=== PATIENT | female | born 1970 | race Caucasian/White ===

== ENCOUNTER 2016-10-05 00:52 | Emergency (ER) | payer OTHER ==
--- NOTE | 2016-10-05 01:46 | ED NURSING NOTES ---
Clinical Report - Nurses [facility] [address] [place] [address] 10/05/2016 0:56 Patient: JOSE VEGA TRIAGE Triage time 01:Oct 05 2016. Acuity: LEVEL 4. Chief Complaint: REDNESS TO LEFT EYE. --01: Salbador Gonzales R.N. 01:04 10/05/16. BP: 144/90. HR: 83. RR: 16. O2 saturation: 100%. Temp: 97.9 F. Pain level now 10. --01: Salbador Gonzales R.N. Weight: 90.7 kg estimated. Height/Length: 68 inches. BMI: 30.4. --01: Salbador Gonzales R.N. Medications [place] Carbonate ER Oral. --01: Salbador Gonzales R.N. Allergies NKDA. --01: Salbador Gonzales R.N. History Arrived by private vehicle. Historian: patient. Onset. (2 weeks). SOCIAL HX: Light tobacco smoker. No alcohol use or drug use. --01:09 Salbador Gonzales R.N. ( Pt talking rapidly states her eye has been red for 2 weeks thinks she has shingles. no injury to eye, no vision changes.). --01:11 Salbador Gonzales R.N. PROBLEMS: Bipolar Disorder. --01:07 Salbador Gonzales R.N. Interventions ID band on patient. To treatment room. --01:09 Salbador Gonzales R.N. PHYSICAL ASSESSMENT GENERAL / NEURO / PSYCH: Appears in no acute distress. Appears anxious. Double vision. HEENT: No facial asymmetry noted. Conjunctival findings present: redness of the left conjunctiva. No redness on the right. No photophobia. --01:10 Salbador Gonzales R.N. DISPOSITION / DISCHARGE 02:01 10/05/16. BP: 143/85. HR: 83. RR: 20. O2 saturation: 97%. Temp: 98.8 F. Pain level now 0/10. --02:01 Salbador Gonzales R.N. Departure time: 0150. No learning barriers present. Discharge instructions provided and reviewed with the patient. Reviewed medication(s) information. Patient verbalized understanding. Written instructions provided in Urdu. The patient was discharged by the physician. She was discharged home and accompanied by vise hand. --02:02 Salbador Gonzales R.N. Locked/Released at 10/05/2016 5:56 by Salbador Gonzales R.N.
--- NOTE | 2016-10-05 01:46 | ED NURSING NOTES ---
Clinical Report - Nurses [facility] [address] [place] [address] 10/05/2016 0:56 Patient: JOSE VEGA TRIAGE Triage time 01:Oct 05 2016. Acuity: LEVEL 4. Chief Complaint: REDNESS TO LEFT EYE. --01: Salbador Gonzales R.N. 01:04 10/05/16. BP: 144/90. HR: 83. RR: 16. O2 saturation: 100%. Temp: 97.9 F. Pain level now 10. --01: Salbador Gonzales R.N. Weight: 90.7 kg estimated. Height/Length: 68 inches. BMI: 30.4. --01: Salbador Gonzales R.N. Medications [place] Carbonate ER Oral. --01: Salbador Gonzales R.N. Allergies NKDA. --01: Salbador Gonzales R.N. History Arrived by private vehicle. Historian: patient. Onset. (2 weeks). SOCIAL HX: Light tobacco smoker. No alcohol use or drug use. --01:09 Salbador Gonzales R.N. ( Pt talking rapidly states her eye has been red for 2 weeks thinks she has shingles. no injury to eye, no vision changes.). --01:11 Salbador Gonzales R.N. PROBLEMS: Bipolar Disorder. --01:07 Salbador Gonzales R.N. Interventions ID band on patient. To treatment room. --01:09 Salbador Gonzales R.N. PHYSICAL ASSESSMENT GENERAL / NEURO / PSYCH: Appears in no acute distress. Appears anxious. Double vision. HEENT: No facial asymmetry noted. Conjunctival findings present: redness of the left conjunctiva. No redness on the right. No photophobia. --01:10 Salbador Gonzales R.N. DISPOSITION / DISCHARGE 02:01 10/05/16. BP: 143/85. HR: 83. RR: 20. O2 saturation: 97%. Temp: 98.8 F. Pain level now 0/10. --02:01 Salbador Gonzales R.N. Departure time: 0150. No learning barriers present. Discharge instructions provided and reviewed with the patient. Reviewed medication(s) information. Patient verbalized understanding. Written instructions provided in Sami. The patient was discharged by the physician. She was discharged home and accompanied by inspector rubber stamp die. --02:02 Salbador Gonzales R.N. Locked/Released at 10/05/2016 5:56 by Salbador Gonzales R.N.
--- NOTE | 2016-10-05 01:46 | ED CLINICAL REPORT ---
Clinical Report - Physicians/Mid Levels [facility] [address] [place] [address] 10/05/2016 0:56 Patient: JOSE VEGA Time Seen: 01:31. Arrived- By private vehicle. Historian- patient. HISTORY OF PRESENT ILLNESS Chief Complaint: SKIN RASH. This started about 2 weeks ago and is still present. It was gradual in onset and has been constant. It is described as itchy. It has been located on the face (L periorbital). No cause has been identified. REVIEW OF SYSTEMS No chills, fever, sweats, calf pain or chest pain. No cough, difficulty breathing, pedal edema, palpitations or abdominal pain. No constipation, diarrhea, nausea, vomiting or urinary problems. All systems otherwise negative, except as recorded above. SOCIAL HISTORY Current every day light tobacco smoker (cigarette). No alcohol use or drug use. FAMILY HISTORY Denies family medical history. PHYSICAL EXAM Appearance: Alert. Eyes: Pupils equal, round and reactive to light. ENT: Pharynx normal. Neck: Neck supple. No lymphadenopathy. CVS: Normal heart rate and rhythm. Heart sounds normal. Respiratory: No respiratory distress. Breath sounds normal. Abdomen: Nontender. No organomegaly. Skin: Not vesicular or bullous. The rash is erythematous and maculopapular. Rash present on the face (left periorbital). There is induration and thickening. Extremities: Normal external inspection. Extremities nontender. No calf tenderness. PROGRESS AND PROCEDURES Course of Care: Patient is stable. Patient/family counseled. Old medical records reviewed. Disposition: Discharged. Condition: stable. CLINICAL IMPRESSION Atopic dermatitis. INSTRUCTIONS Warnings: Further evaluation is necessary. GENERAL WARNINGS: Return or contact your physician immediately if your condition worsens or changes unexpectedly, if not improving as expected, or if other problems arise. Prescription Medications: Prednisone 20 mg: take 2 orally every day for 5 days. Dispense sufficient quantity. No refills. Follow-up: Follow up with your doctor in five days. Call for an appointment. Understanding of the discharge instructions verbalized by patient. (Electronically signed by Crow Cardona MD 10/09/2016 0:53)
--- NOTE | 2016-10-05 01:46 | ED CLINICAL REPORT ---
Clinical Report - Physicians/Mid Levels [facility] [address] [place] [address] 10/05/2016 0:56 Patient: JOSE VEGA Time Seen: 01:31. Arrived- By private vehicle. Historian- patient. HISTORY OF PRESENT ILLNESS Chief Complaint: SKIN RASH. This started about 2 weeks ago and is still present. It was gradual in onset and has been constant. It is described as itchy. It has been located on the face (L periorbital). No cause has been identified. REVIEW OF SYSTEMS No chills, fever, sweats, calf pain or chest pain. No cough, difficulty breathing, pedal edema, palpitations or abdominal pain. No constipation, diarrhea, nausea, vomiting or urinary problems. All systems otherwise negative, except as recorded above. SOCIAL HISTORY Current every day light tobacco smoker (cigarette). No alcohol use or drug use. FAMILY HISTORY Denies family medical history. PHYSICAL EXAM Appearance: Alert. Eyes: Pupils equal, round and reactive to light. ENT: Pharynx normal. Neck: Neck supple. No lymphadenopathy. CVS: Normal heart rate and rhythm. Heart sounds normal. Respiratory: No respiratory distress. Breath sounds normal. Abdomen: Nontender. No organomegaly. Skin: Not vesicular or bullous. The rash is erythematous and maculopapular. Rash present on the face (left periorbital). There is induration and thickening. Extremities: Normal external inspection. Extremities nontender. No calf tenderness. PROGRESS AND PROCEDURES Course of Care: Patient is stable. Patient/family counseled. Old medical records reviewed. Disposition: Discharged. Condition: stable. CLINICAL IMPRESSION Atopic dermatitis. INSTRUCTIONS Warnings: Further evaluation is necessary. GENERAL WARNINGS: Return or contact your physician immediately if your condition worsens or changes unexpectedly, if not improving as expected, or if other problems arise. Prescription Medications: Prednisone 20 mg: take 2 orally every day for 5 days. Dispense sufficient quantity. No refills. Follow-up: Follow up with your doctor in five days. Call for an appointment. Understanding of the discharge instructions verbalized by patient. (Electronically signed by Crow Cardona MD 10/09/2016 0:53)
--- NOTE | 2016-10-09 00:53 | ED DISCHARGE INSTRUCTIONS ---
Patient: JOSE VEGA General Instructions [facility] VisitID: [id number] [place] [address] 46y, F Registration Date/Time: 10/05/2016 Atopic dermatitis. INSTRUCTIONS Warnings: Further evaluation is necessary. GENERAL WARNINGS: Return or contact your physician immediately if your condition worsens or changes unexpectedly, if not improving as expected, or if other problems arise. Prescription Medications: Prednisone 20 mg: take 2 orally every day for 5 days. Dispense sufficient quantity. No refills. Follow-up: Follow up with your doctor in five days. Call for an appointment. Understanding of the discharge instructions verbalized by patient. ADDITIONAL INFORMATION Dermatitis (Non-Specific) Dermatitis is an inflammation of the skin. The exact cause of your rash is not certain. However, this rash does not appear to be an infection or contagious illness. Taking care of the rash at home should help relieve your symptoms. Home Care: Keep the areas of rash clean by washing it daily. This also helps to keep the skin moist. Use a neutral pH soap such as Dove or Lever 2000. Apply a moisturizing lotion after bathing to prevent dry skin. Avoid skin irritants (wool or silk clothing, grease, oils, some medicines, harsh soaps, and detergents). Wear absorbent, soft fabrics next to the skin rather than rough or scratchy materials. Unless another medicine was prescribed, you may use Hydrocortisone cream (which you can get without a prescription) to reduce the inflammation. Follow Up: Make an appointment with your doctor in the next 1 to 2 weeks if your symptoms do not improve with the above measures. Get Prompt Medical Attention if any of the following occur: Increasing area of redness or pain in the skin Yellow crusts or drainage from the rash Joint pain New rash that appears in other areas of the body Fever of 100.4F (38C) or higher, or as directed by your healthcare provider Prednisone Oral tablet What is this medicine? PREDNISONE (PRED ni sone) is a corticosteroid. It is commonly used to treat inflammation of the skin, joints, lungs, and other organs. Common conditions treated include asthma, allergies, and arthritis. It is also used for other conditions, such as blood disorders and diseases of the adrenal glands. How should I use this medicine? Take this medicine by mouth with a glass of water. Follow the directions on the prescription label. Take this medicine with food. If you are taking this medicine once a day, take it in the morning. Do not take more medicine than you are told to take. Do not suddenly stop taking your medicine because you may develop a severe reaction. Your doctor will tell you how much medicine to take. If your doctor wants you to stop the medicine, the dose may be slowly lowered over time to avoid any side effects. Talk to your entry table operator regarding the use of this medicine in children. Special care may be needed. What side effects may I notice from receiving this medicine? Side effects that you should report to your doctor or health reproductive healthcare assistant as soon as possible: allergic reactions like skin rash, itching or hives, swelling of the face, lips, or tongue changes in emotions or moods changes in vision depressed mood eye pain fever or chills, cough, sore throat, pain or difficulty passing urine increased thirst swelling of ankles, feet Side effects that usually do not require medical attention (report to your doctor or health reproductive healthcare assistant if they continue or are bothersome): confusion, excitement, restlessness headache nausea, vomiting skin problems, acne, thin and shiny skin trouble sleeping weight gain What may interact with this medicine? Do not take this medicine with any of the following medications: metyrapone mifepristone This medicine may also interact with the following medications: aminoglutethimide amphotericin B aspirin and aspirin-like medicines barbiturates certain medicines for diabetes, like glipizide or glyburide cholestyramine cholinesterase inhibitors cyclosporine digoxin diuretics ephedrine female hormones, like estrogens and control pills isoniazid ketoconazole NSAIDS, medicines for pain and inflammation, like ibuprofen or naproxen phenytoin rifampin toxoids vaccines warfarin What if I miss a dose? If you miss a dose, take it as soon as you can. If it is almost time for your next dose, talk to your doctor or health reproductive healthcare assistant. You may need to miss a dose or take an extra dose. Do not take double or extra doses without advice. Where should I keep my medicine? Keep out of the reach of children. Store at room temperature between 15 and 30 degrees C (59 and 86 degrees F). Protect from light. Keep container tightly closed. Throw away any unused medicine after the expiration date. What should I tell my health care provider before I take this medicine? They need to know if you have any of these conditions: Alden's syndrome diabetes glaucoma heart disease high blood pressure infection (especially a virus infection such as chickenpox, cold sores, or herpes) kidney disease liver disease mental illness myasthenia gravis osteoporosis seizures stomach or intestine problems thyroid disease an unusual or allergic reaction to lactose, prednisone, other medicines, foods, dyes, or preservatives or trying to get breast-feeding What should I watch for while using this medicine? Visit your doctor or health reproductive healthcare assistant for regular checks on your progress. If you are taking this medicine over a prolonged period, carry an identification card with your name and address, the type and dose of your medicine, and your doctor's name and address. This medicine may increase your risk of getting an infection. Tell your doctor or health reproductive healthcare assistant if you are around anyone with measles or chickenpox, or if you develop sores or blisters that do not heal properly. If you are going to have surgery, tell your doctor or health reproductive healthcare assistant that you have taken this medicine within the last twelve months. Ask your doctor or health reproductive healthcare assistant about your diet. You may need to lower the amount of salt you eat. This medicine may affect blood sugar levels. If you have diabetes, check with your doctor or health reproductive healthcare assistant before you change your diet or the dose of your diabetic medicine. You have been given the following additional information: Dermatitis, Non-Specific Prednisone Oral tablet (Electronically signed by Crow Cardona MD 10/09/2016 0:53)
--- NOTE | 2016-10-09 00:53 | ED MAR SUMMARY ---
..... Medication Administration Record [facility] [address] [place], [place] [id number] Patient: JOSE VEGA Visit ID: [id number] 46y, F Weight: 90.7 kg Height/Length: 68 in BMI: 30.4 ALLERGIES: NKDA
--- NOTE | 2016-10-09 00:53 | ED DISCHARGE INSTRUCTIONS ---
Patient: JOSE VEGA General Instructions [facility] VisitID: [id number] [place] [address] 46y, F Registration Date/Time: 10/05/2016 Atopic dermatitis. INSTRUCTIONS Warnings: Further evaluation is necessary. GENERAL WARNINGS: Return or contact your physician immediately if your condition worsens or changes unexpectedly, if not improving as expected, or if other problems arise. Prescription Medications: Prednisone 20 mg: take 2 orally every day for 5 days. Dispense sufficient quantity. No refills. Follow-up: Follow up with your doctor in five days. Call for an appointment. Understanding of the discharge instructions verbalized by patient. ADDITIONAL INFORMATION Dermatitis (Non-Specific) Dermatitis is an inflammation of the skin. The exact cause of your rash is not certain. However, this rash does not appear to be an infection or contagious illness. Taking care of the rash at home should help relieve your symptoms. Home Care: Keep the areas of rash clean by washing it daily. This also helps to keep the skin moist. Use a neutral pH soap such as Dove or Lever 2000. Apply a moisturizing lotion after bathing to prevent dry skin. Avoid skin irritants (wool or silk clothing, grease, oils, some medicines, harsh soaps, and detergents). Wear absorbent, soft fabrics next to the skin rather than rough or scratchy materials. Unless another medicine was prescribed, you may use Hydrocortisone cream (which you can get without a prescription) to reduce the inflammation. Follow Up: Make an appointment with your doctor in the next 1 to 2 weeks if your symptoms do not improve with the above measures. Get Prompt Medical Attention if any of the following occur: Increasing area of redness or pain in the skin Yellow crusts or drainage from the rash Joint pain New rash that appears in other areas of the body Fever of 100.4F (38C) or higher, or as directed by your healthcare provider Prednisone Oral tablet What is this medicine? PREDNISONE (PRED ni sone) is a corticosteroid. It is commonly used to treat inflammation of the skin, joints, lungs, and other organs. Common conditions treated include asthma, allergies, and arthritis. It is also used for other conditions, such as blood disorders and diseases of the adrenal glands. How should I use this medicine? Take this medicine by mouth with a glass of water. Follow the directions on the prescription label. Take this medicine with food. If you are taking this medicine once a day, take it in the morning. Do not take more medicine than you are told to take. Do not suddenly stop taking your medicine because you may develop a severe reaction. Your doctor will tell you how much medicine to take. If your doctor wants you to stop the medicine, the dose may be slowly lowered over time to avoid any side effects. Talk to your psychiatric secretary regarding the use of this medicine in children. Special care may be needed. What side effects may I notice from receiving this medicine? Side effects that you should report to your doctor or health certified caregiver as soon as possible: allergic reactions like skin rash, itching or hives, swelling of the face, lips, or tongue changes in emotions or moods changes in vision depressed mood eye pain fever or chills, cough, sore throat, pain or difficulty passing urine increased thirst swelling of ankles, feet Side effects that usually do not require medical attention (report to your doctor or health certified caregiver if they continue or are bothersome): confusion, excitement, restlessness headache nausea, vomiting skin problems, acne, thin and shiny skin trouble sleeping weight gain What may interact with this medicine? Do not take this medicine with any of the following medications: metyrapone mifepristone This medicine may also interact with the following medications: aminoglutethimide amphotericin B aspirin and aspirin-like medicines barbiturates certain medicines for diabetes, like glipizide or glyburide cholestyramine cholinesterase inhibitors cyclosporine digoxin diuretics ephedrine female hormones, like estrogens and control pills isoniazid ketoconazole NSAIDS, medicines for pain and inflammation, like ibuprofen or naproxen phenytoin rifampin toxoids vaccines warfarin What if I miss a dose? If you miss a dose, take it as soon as you can. If it is almost time for your next dose, talk to your doctor or health certified caregiver. You may need to miss a dose or take an extra dose. Do not take double or extra doses without advice. Where should I keep my medicine? Keep out of the reach of children. Store at room temperature between 15 and 30 degrees C (59 and 86 degrees F). Protect from light. Keep container tightly closed. Throw away any unused medicine after the expiration date. What should I tell my health care provider before I take this medicine? They need to know if you have any of these conditions: Deer's syndrome diabetes glaucoma heart disease high blood pressure infection (especially a virus infection such as chickenpox, cold sores, or herpes) kidney disease liver disease mental illness myasthenia gravis osteoporosis seizures stomach or intestine problems thyroid disease an unusual or allergic reaction to lactose, prednisone, other medicines, foods, dyes, or preservatives or trying to get breast-feeding What should I watch for while using this medicine? Visit your doctor or health certified caregiver for regular checks on your progress. If you are taking this medicine over a prolonged period, carry an identification card with your name and address, the type and dose of your medicine, and your doctor's name and address. This medicine may increase your risk of getting an infection. Tell your doctor or health certified caregiver if you are around anyone with measles or chickenpox, or if you develop sores or blisters that do not heal properly. If you are going to have surgery, tell your doctor or health certified caregiver that you have taken this medicine within the last twelve months. Ask your doctor or health certified caregiver about your diet. You may need to lower the amount of salt you eat. This medicine may affect blood sugar levels. If you have diabetes, check with your doctor or health certified caregiver before you change your diet or the dose of your diabetic medicine. You have been given the following additional information: Dermatitis, Non-Specific Prednisone Oral tablet (Electronically signed by Crow Cardona MD 10/09/2016 0:53)
--- NOTE | 2016-10-09 00:53 | ED MED RECONCILIATION SUMMARY ---
Patient: JOSE VEGA Medication Reconciliation Report [facility] VisitID: [id number] [address] [place] [address] 46y, F Registration Date/Time: 10/05/2016 Weight: 90.7 kg Height/Length: 68 in. BMI: 30.4 ALLERGIES: NKDA The patient's Home Medications are listed below: THE FOLLOWING MEDICATIONS NEED TO BE RECONCILED: [place] Carbonate ER Oral The source(s) of the original Home Medication information: Not obtained. The following Medications were given to the patient in the Emergency Department: None. The following Medications were prescribed to the patient: Prednisone 20 mg: take 2 orally every day for 5 days. Dispense sufficient quantity. No refills. -- Crow Cardona MD
--- NOTE | 2016-10-09 00:53 | ED MAR SUMMARY ---
..... Medication Administration Record [facility] [address] [place], [place] [id number] Patient: JOSE VEGA Visit ID: [id number] 46y, F Weight: 90.7 kg Height/Length: 68 in BMI: 30.4 ALLERGIES: NKDA
--- NOTE | 2016-10-09 00:53 | ED MED RECONCILIATION SUMMARY ---
Patient: JOSE VEGA Medication Reconciliation Report [facility] VisitID: [id number] [address] [place] [place] [address] 46y, F Registration Date/Time: 10/05/2016 Weight: 90.7 kg Height/Length: 68 in. BMI: 30.4 ALLERGIES: NKDA The patient's Home Medications are listed below: THE FOLLOWING MEDICATIONS NEED TO BE RECONCILED: [place] Carbonate ER Oral The source(s) of the original Home Medication information: Not obtained. The following Medications were given to the patient in the Emergency Department: None. The following Medications were prescribed to the patient: Prednisone 20 mg: take 2 orally every day for 5 days. Dispense sufficient quantity. No refills. -- Crow Cardona MD
== END 2016-10-05 01:50 | disposition home or self-care (01) ==
LOC: ED SRH 00:52
DX: L20.9 Atopic dermatitis, unspecified (principal); F17.210 Nicotine dependence, cigarettes, uncomplicated